=== PATIENT | female | born 1970 | race Caucasian/White ===

== ENCOUNTER 2018-06-10 00:17 | Emergency (ER) | payer MEDICAID, SELFPAY ==
[~2018-06-10] VITALS: Ht 165.1 cm; Wt 81.0 kg
[2018-06-10 00:43] LABS: BASOPHILS # (AUTO) 0.05 x10^3/uL (0-0.1); BASOPHILS % (AUTO) 1 % (0-1); EOSINOPHILS # (AUTO) 0.07 x10^3/uL (0-0.4); EOSINOPHILS % (AUTO) 1 % (1-7); LYMPHOCYTES # (AUTO) 2.29 x10^3/uL (1-3.4); LYMPHOCYTES % (AUTO) 37 % (22-44); MD NO; MEAN CORPUSCULAR HEMOGLOBIN 28.6 pg (27.0-34.8); MEAN CORPUSCULAR HGB CONC 34.2 g/dL (32.4-35.8); MEAN CORPUSCULAR VOLUME 83.4 fL (80-100); MEAN PLATELET VOLUME 8.8 fL (7.4-10.4); MONOCYTES # (AUTO) 0.45 x10^3/uL (0.2-0.8); MONOCYTES % (AUTO) 7 % (2-9); NEUTROPHILS # (AUTO) 3.28 x10^3/uL (1.8-6.8); NEUTROPHILS % (AUTO) 54 % (42-75); PLATELET COUNT 232 x10^3/uL (130-400); RED BLOOD COUNT 4.59 x10^6/uL (3.82-5.3); RED CELL DISTRIBUTION WIDTH 13.6 % (9.6-15.2)
[2018-06-10 00:53] LABS: ALANINE AMINOTRANSFERASE 19 U/L (12-78); ALBUMIN 3.6 g/dL (3.4-5.0); ANION GAP 6 mmol/L (5-15); CALCIUM 8.9 mg/dL (8.5-10.1); CHLORIDE 110 mmol/L (98-107); CREATININE 1.02 mg/dL (0.55-1.02)
[2018-06-10 00:57] LABS: ALKALINE PHOSPHATASE 80 U/L (45-117); BILIRUBIN,TOTAL 0.9 mg/dL (0.2-1.0); TOTAL PROTEIN 7.2 g/dL (6.4-8.2); TROPONIN I < 0.015 ng/mL (0.000-0.045)
[2018-06-10 02:12] VITALS: BP 94/48
== END 2018-06-10 02:13 | disposition home or self-care (01) ==
LOC: ED 01:25
DX: R07.89 Other chest pain (principal); Z87.891 Personal history of nicotine dependence; F25.9 Schizoaffective disorder, unspecified; F32.9 Major depressive disorder, single episode, unspecified; F41.1 Generalized anxiety disorder
CPT/HCPCS: 36415; 71045; 80053; 84484; 85025; 85379; 93005; 99285

== ENCOUNTER 2019-04-25 11:12 | Outpatient (CLI) | payer MEDICAID | END 2019-04-25 23:59 | disposition home or self-care (01) | LOC: RAD 11:12 | PROVIDERS: ATTEND Nurse Practitioner Psychiatric/Mental Health | DX: R05 Cough (principal) | CPT/HCPCS: 71046 ==

== ENCOUNTER 2020-04-30 00:08 | Observation (INO) | payer MEDICAID ==
[~2020-04-30] VITALS: Ht 160 cm; Wt 79.2 kg
--- NOTE | 2020-04-30 00:33 | NUR ---
PT RESTING ON [address], MONITORS IN PLACE, SIDERAILS UP X2, CALL LIGHT WITHIN REACH
[2020-04-30] MEDS ORDERED: ONDANSETRON 2MG/ML, 2ML IVPush PRN (01:00)
[2020-04-30] MEDS ORDERED: hydrALAzine 20 MG/ML, 1ML IVPush PRN (01:00)
[2020-04-30] MEDS ORDERED: ASPIRIN 81 MG TABLET EC PO ONE (01:00)
[2020-04-30] MEDS ORDERED: ACETAMINOPHEN 325 MG TABLET PO PRN (01:00)
[2020-04-30] MEDS ORDERED: ASPIRIN 81 MG TABLET EC ONE (01:10)
--- NOTE | 2020-04-30 02:18 | NUR ---
PT RSTING CALMLY WITH EYES CLOSED, EASILY RESPONDS TO VERBAL RESPONSE, DENIES NEEDS, MONITORS IN PLACE, SIDERAILS UP X2, CALLL LIGHT WITHIN REACH. AWAITING ROOM FOR ADMIT
--- NOTE | 2020-04-30 03:32 | NUR ---
pt up to rr with standby assist, tolerated transfer without difficulty. provided and assisted pt with transferring to hospital bed
--- NOTE | 2020-04-30 04:19 | NUR ---
pt resting in bed with eyes closed, arouses easily to verbal response, neuro intact, denies needs, moniotrs in place, siderails up x2, call light within reach. awaiting room for admit
--- NOTE | 2020-04-30 04:40 | NUR ---
pt sitting up in bed, pt stated " i'm sick of getting poked at, i want to sign the paper so i can leave". admit md update that pt requesting to leave md elpidio now at pt's bedside. pt agreed to stay at hospital and be admitted
--- NOTE | 2020-04-30 05:16 | NUR ---
pt resting with eyes closed, nad, respirations even and unlabored, moniotrs in place, call light within reach
[2020-04-30 08:25] VITALS: BP 103/65
[2020-04-30 11:16] LABS: MICROSCOPIC AUTO
[2020-04-30 14:05] VITALS: BP 111/54
[2020-04-30] MEDS ORDERED: GADOTERATE 7.5 MMOL/15 ML SYR ONE (17:33)
[2020-04-30 22:20] VITALS: BP 109/65
[2020-05-01 01:36] VITALS: BP 104/67
[2020-05-01 05:31] LABS: BASOPHILS # (AUTO) 0.03 x10^3/uL (0-0.1); BASOPHILS % (AUTO) 1 % (0-1); EOSINOPHILS # (AUTO) 0.13 x10^3/uL (0-0.4); EOSINOPHILS % (AUTO) 2 % (1-7); LYMPHOCYTES # (AUTO) 2.17 x10^3/uL (1-3.4); LYMPHOCYTES % (AUTO) 34 % (22-44); MD NO; MEAN CORPUSCULAR HEMOGLOBIN 28.6 pg (27.0-34.8); MEAN CORPUSCULAR HGB CONC 33.2 g/dL (32.4-35.8); MEAN CORPUSCULAR VOLUME 86.1 fL (80-100); MEAN PLATELET VOLUME 8.9 fL (7.4-10.4); MONOCYTES # (AUTO) 0.46 x10^3/uL (0.2-0.8); MONOCYTES % (AUTO) 7 % (2-9); NEUTROPHILS # (AUTO) 3.55 x10^3/uL (1.8-6.8); NEUTROPHILS % (AUTO) 56 % (42-75); PLATELET COUNT 201 x10^3/uL (130-400); RED BLOOD COUNT 4.57 x10^6/uL (3.82-5.3); RED CELL DISTRIBUTION WIDTH 13.7 % (9.6-15.2)
[2020-05-01 05:44] LABS: ANION GAP 7 mmol/L (5-15); CALCIUM 8.7 mg/dL (8.5-10.1); CHLORIDE 111 mmol/L (98-107)
[2020-05-01 05:45] LABS: CREATININE 1.03 mg/dL (0.55-1.02)
[2020-05-01] MEDS ORDERED: ASPIRIN 81 MG TABLET EC PO SCH (06:00)
[2020-05-01] MEDS ORDERED: MECLIZINE 25 MG TABLET PO PRN (08:30)
[2020-05-01 08:49] LABS: CHOL/HDL RATIO 4.8; LDL/HDL RATIO 2.8 (0.5-3.0)
[2020-05-01 09:05] VITALS: BP 115/72
[2020-05-01 09:10] VITALS: BP 111/73
[2020-05-01 09:15] VITALS: BP 118/84
[2020-05-01] MEDS ORDERED: MECL-101 PO (11:54)
[2020-05-01] MEDS ORDERED: ATOR40TA78 PO (11:55)
== END 2020-05-01 13:00 | disposition home or self-care (01) ==
LOC: ED 01:07 → EDIP 01:36 → INTOOBSV 01:36 → 5SO 05:58
PROVIDERS: ADMIT Internal Medicine; ATTEND Internal Medicine
DX: R42 Dizziness and giddiness (principal); F25.9 Schizoaffective disorder, unspecified; F43.10 Post-traumatic stress disorder, unspecified; F41.8 Other specified anxiety disorders; R47.1 Dysarthria and anarthria; Z87.891 Personal history of nicotine dependence; Z79.899 Other long term (current) drug therapy
CPT/HCPCS: 36415; 70553; 80048; 80061; 81001; 85025; 93005; 93306; 93880; 97161; 99285; A9575; G0378